=== PATIENT | male | born 1955 | race Caucasian/White ===

== ENCOUNTER → 2017-07-30 | Outpatient (CLI) | payer MEDICARE, MEDICAID ==
[2017-07-30 14:24] LABS: HEMATOCRIT 36.7 % (37.9-51.0); HEMOGLOBIN 12.5 g/dL (13.5-17.0); MEAN CORPUSCULAR HEMOGLOBIN 31.3 pg (27.0-33.4); MEAN CORPUSCULAR HGB CONC 34.1 g/dL (32.0-36.0); MEAN CORPUSCULAR VOLUME 92 fl (80-97); PLATELET COUNT 457 10^3/uL (150-450); RED BLOOD COUNT 4.01 10^6/uL (4.35-5.55); RED CELL DISTRIBUTION WIDTH 14.1 % (11.5-14.0)
[2017-07-30 15:04] LABS: ERYTHROCYTE SEDIMENTATION RATE 37 mm/hr (0-20)
== END ==
LOC: LAB 13:59
PROVIDERS: ATTEND Specialist
DX: L08.9 Local infection of the skin and subcutaneous tissue, unspecified (principal); R52 Pain, unspecified
CPT/HCPCS: 36415; 85027; 85652

== ENCOUNTER 2017-08-20 10:28 | Emergency (ER) | payer MEDICARE, MEDICAID ==
[2017-08-20 10:32] VITALS: BP 152/75
--- NOTE | 2017-08-20 11:21 | ER Document Report ---
HPI - HPI Onset: This morning Quality of pain: No pain Pain Level: 0 Context: Patient states that his doctor advised him to come to the hospital to have his PICC line removed. Patient states he was receiving antibiotics for an infection that he developed after having back surgery in June. Patient denies any fever or recent illness. Patient states that tape from the dressing has been irritating his upper arm. Associated Symptoms: denies: Fever Exacerbated by: Denies Relieved by: Denies Similar symptoms previously: No Recently seen / treated by doctor: No - ROS ROS below otherwise negative: Yes Systems Reviewed and Negative: Yes All other systems reviewed and negative - CONSTITUTIONAL Constitutional: DENIES: Fever, Chills - DERM Skin Color: Normal Skin Problems: Rash Past Medical History - General Information source: Patient - Social History Smoking Status: Current Every Day Smoker Frequency of alcohol use: None Drug Abuse: None Occupation: none Family History: Reviewed & Not Pertinent Patient has suicidal ideation: No Patient has homicidal ideation: No - Past Medical History Cardiac Medical History: Reports: Hx Hypertension Denies: Hx Coronary Artery Disease, Hx Heart Attack Pulmonary Medical History: Denies: Hx Asthma, Hx Bronchitis, Hx COPD, Hx Pneumonia Neurological Medical History: Denies: Hx Cerebrovascular Accident Renal/ Medical History: Denies: Hx Peritoneal Dialysis Musculoskeltal Medical History: Reports Hx Arthritis - PRIMARILY IN THE NECK Past Surgical History: Reports: Hx Orthopedic Surgery - Immunizations Hx Diphtheria, Pertussis, Tetanus Vaccination: Yes Vertical Provider Document - CONSTITUTIONAL Agree With Documented VS: Yes Exam Limitations: No Limitations General Appearance: WD/WN, No Apparent Distress - INFECTION CONTROL TRAVEL OUTSIDE OF THE [place] IN LAST 30 DAYS: No - HEENT HEENT: Atraumatic, Normocephalic - NECK Neck: Normal Inspection - RESPIRATORY Respiratory: Breath Sounds Normal, No Respiratory Distress O2 Sat by Pulse Oximetry: 95 - CARDIOVASCULAR Cardiovascular: Regular Rate, Regular Rhythm Pulses: Normal: Radial - MUSCULOSKELETAL/EXTREMETIES Musculoskeletal/Extremeties: MAEW - NEURO Level of Consciousness: Awake, Alert, Appropriate Motor/Sensory: No Motor Deficit - DERM Integumentary: Warm, Dry, Rash - Scaling erythematous rash concerning for irritation from tape dressing around PICC line, PICC line to right upper extremity, no erythema noted near insertion site, no swelling to arm. Course - Re-evaluation Re-evalutation: 08/20/17 11:[address] Arambula who is the infectious disease doctor who would order the antibiotics. States that patient no longer needs antibiotics and that the PICC line could be discontinued. - Vital Signs Vital signs: Temp Pulse Resp BP Pulse Ox 98.6 F 66 18 152/75 H 95 08/20/17 10:31 08/20/17 10:31 08/20/17 10:31 08/20/17 10:31 08/20/17 10:31 Discharge - Discharge Clinical Impression: Hx of essential hypertension, PIC line (peripherally inserted central catheter ) removal Condition: Stable Disposition: HOME, SELF-CARE Additional Instructions: Return immediately for any new or worsening symptoms Followup with your primary care provider, call tomorrow to make a followup appointment Forms: Smoking Cessation Education, Elevated Blood Pressure Referrals: ANA LINK MD [Primary Care Provider] - Follow up tomorrow
== END 2017-08-20 11:40 | disposition home or self-care (01) ==
LOC: ER 10:28
DX: Z45.2 Encounter for adjustment and management of vascular access device (principal); I10 Essential (primary) hypertension; R21 Rash and other nonspecific skin eruption; F17.200 Nicotine dependence, unspecified, uncomplicated
CPT/HCPCS: 99283